=== PATIENT | female | born 1980 | race Caucasian/White ===

== ENCOUNTER 2022-06-16 14:20 | Outpatient (CLI) | payer BC | END 2022-06-16 14:21 | disposition home or self-care (01) | LOC: CSHMAMMO 14:20 | PROVIDERS: ATTEND Family Medicine | DX: Z12.31 Encounter for screening mammogram for malignant neoplasm of breast (principal) | CPT/HCPCS: 77063; 77067 ==

== ENCOUNTER 2023-09-08 15:33 | Outpatient (CLI) | payer BC | END 2023-09-08 15:34 | disposition home or self-care (01) | LOC: CSHMAMMO 15:33 | PROVIDERS: ATTEND Family Medicine | DX: Z12.31 Encounter for screening mammogram for malignant neoplasm of breast (principal) | CPT/HCPCS: 77063; 77067 ==

== ENCOUNTER 2024-09-09 09:25 | Outpatient (CLI) | payer BC | END 2024-09-09 09:26 | disposition home or self-care (01) | LOC: CSHMAMMO 09:25 | PROVIDERS: ATTEND Family Medicine | DX: Z12.31 Encounter for screening mammogram for malignant neoplasm of breast (principal) | CPT/HCPCS: 77063; 77067 ==

== ENCOUNTER 2025-09-16 15:33 | Outpatient (CLI) | payer BC | END 2025-09-16 15:34 | disposition home or self-care (01) | LOC: CSHMAMMO 15:33 | PROVIDERS: ATTEND Family Medicine | DX: Z12.31 Encounter for screening mammogram for malignant neoplasm of breast (principal) | CPT/HCPCS: 77063; 77067 ==